=== PATIENT | female | born 1975 | race Caucasian/White ===

== ENCOUNTER 2018-03-22 08:29 | Emergency (ER) | payer BC ==
[~2018-03-22] VITALS: Ht 170.2 cm; Wt 61.6 kg
[~2018-03-22 08:29] MED LIST: CLX20 PO; DEXTLIQ PO; NAPR1TAB9 PO
[2018-03-22 08:36] VITALS: TEMP 36.7; Ht 170.2 cm; Wt 61.6 kg
[2018-03-22] MEDS ORDERED: ASPIRIN 81 MG CHEW PO STA (09:19)
[2018-03-22 09:41] LABS: BASO % 0.5 %; BASO ABS # 0.02 K/uL (0-0.2); EOS % 1.6 %; EOS ABS # 0.07 K/uL (0-0.5); HEMATOCRIT 39.1 % (37-47); HEMOGLOBIN 13.5 g/dL (12.0-16.0); IG# 0.01 K/uL (0.00-0.02); LYMPH % 29.6 %; LYMPH ABS # 1.29 K/uL (1.2-3.4); MEAN CELL VOLUME 95.6 fL (80-100); MEAN CORPUSCULAR HGB CONC 34.5 g/dl (32-36); MEAN PLATELET VOLUME 10.8 fL (7.4-10.4); MONO % 6.9 %; NEUT % 61.2 %; NEUT ABS # 2.67 K/uL (1.4-6.5); PLATELET COUNT 238 K/uL (130-400); RED CELL DISTRIBUTION WIDTH CV 12.8 % (11.5-14.5); RED CELL DISTRIBUTION WIDTH SD 43.8 fL (36.4-46.3); WHITE BLOOD COUNT 4.36 K/uL (4.8-10.8)
[2018-03-22] MEDS ORDERED: CITA-295 PO (09:43)
[2018-03-22 09:49] LABS: ALBUMIN 3.8 gm/dl (3.4-5.0); ALT/SGPT 21 U/L (12-78); AST/SGOT 19 U/L (15-37); BLOOD UREA NITROGEN 14 mg/dl (7-18); CALCIUM 8.1 mg/dl (8.5-10.1); CARBON DIOXIDE 27 mmol/L (21-32); CREATININE 0.91 mg/dl (0.60-1.20); GLUCOSE 110 mg/dl (70-99); SODIUM 142 mmol/L (136-145)
[2018-03-22 09:54] LABS: ALKALINE PHOSPHATASE 72 U/L (45-117); TOTAL PROTEIN 7.1 gm/dl (6.4-8.2)
--- NOTE | 2018-03-22 09:54 | DIAGNOSTIC IMAGING REPORT ---
CHEST ONE VIEW PORTABLE CLINICAL HISTORY: chest pain dyspnea COMPARISON STUDY: No previous studies for comparison. FINDINGS: The bones soft tissues and hemidiaphragms are normal. The cardiomediastinal silhouette is normal. The lungs are clear. The pulmonary vasculature is normal. IMPRESSION: Negative chest. The above report was generated using voice recognition software. It may contain grammatical, syntax or spelling errors. Electronically signed by: Ángel Lopez M.D. 03/22/2018 9:53 AM Dictated Date/Time: 03/22/2018 9:52 AM
[2018-03-22] MEDS ORDERED: PANTOprazole SOD 40 MG TAB PO STA (10:28)
[2018-03-22] MEDS ORDERED: RANITIDINE HCL 150 MG TAB PO ONE (10:30)
[2018-03-22] MEDS ORDERED: RANI150T3 PO (10:34)
[2018-03-22] MEDS ORDERED: PANT40TA PO (10:34)
--- NOTE | 2018-03-22 10:43 | EMERGENCY ROOM VISIT NOTE ---
History Report prepared by Lilly: Nena Logan Under the Supervision of: Dr. Rochelle Spencer M.D. First contact with patient: 09:19 Chief Complaint: CHEST PAIN Stated Complaint: CHEST PAINS Nursing Triage Summary: patient c/o midsternal chest pressure that does not radiate since this AM. History of Present Illness The patient is a 42 year old female who presents to the Emergency Room with complaints of an episode of chest pain starting last night. The patient states that she has had this in the past. She states that two weeks ago she stayed home from work for 2 days because she had the chest pain. She states that it woke her up again last night and she had it again this morning. She reports that each time she has one of these episodes she feels nauseous. She states that it feels like a nauseous from pain, but not from being sick. She notes that she feels short of breath and like someone is "sitting on her chest" when these episodes occur. She reports that the Aspirin given here in the ED helped her. The patient complains of fatigue and being stressed. 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 She notes that it will be done in May. The patient denies chest pain on exertion, vomiting, recent trips, being on control, and any chance of . The patient notes that she had beer, cake, and guacamole before bed last night. Source of History: patient Onset: last night Position: chest Quality: other ("someone sitting on her chest") Timing: other (episode) Associated Symptoms: + SOB, + nausea, + fatigue, No vomiting Note: The patient complains of being stressed. The patient denies chest pain on exertion. Review of Systems See HPI for pertinent positives & negatives. A total of 10 systems reviewed and were otherwise negative. Past Medical & Surgical Surgical Problems: (1) H/O section Family History FHx: hypertension Social History Smoking Status: Never Smoker Alcohol Use: none Drug Use: none Marital Status: Housing Status: lives with family Occupation Status: employed Current/Historical Medications Scheduled Citalopram Hydrobromide (Citalopram), 20 MG PO DAILY Pantoprazole (Protonix), 40 MG PO DAILY Ranitidine Hcl (Zantac), 150 MG PO BID Allergies Coded Allergies: Penicillins (Verified Allergy, Intermediate, HIVES, 4/22/18) Physical Exam Vital Signs Date Time Temp Pulse Resp B/P (MAP) Pulse Ox O2 Delivery O2 Flow Rate FiO2 03/22/18 10:52 62 13 112/74 99 03/22/18 10:23 58 12 108/72 98 Room Air 03/22/18 09:44 74 13 100 03/22/18 09:29 71 11 99 03/22/18 09:20 68 03/22/18 08:36 36.7 81 18 118/83 98 Room Air Physical Exam Vital signs reviewed. General: Well-appearing, in no significant distress. HEENT: No scleral icterus, PERRLA, neck supple. Atraumatic. Cardiovascular: Regular rate and rhythm, no extra sounds. Pulmonary: Clear to auscultation bilaterally, normal work of breathing. Abdomen: Soft, nontender, nondistended, positive bowel sounds. Musculoskeletal: Atraumatic, no peripheral edema. Neurologic: Patient awake alert and oriented x 3 Skin: Warm, dry, no rash Medical Decision & Procedures ER Provider Diagnostic Interpretation: Radiology results as stated below per my review and radiologist interpretation: CHEST ONE VIEW PORTABLE CLINICAL HISTORY: chest pain dyspnea COMPARISON STUDY: No previous studies for comparison. FINDINGS: The bones soft tissues and hemidiaphragms are normal. The cardiomediastinal silhouette is normal. The lungs are clear. The pulmonary vasculature is normal. IMPRESSION: Negative chest. The above report was generated using voice recognition software. It may contain grammatical, syntax or spelling errors. Electronically signed by: Ángel Lopez M.D. 03/22/2018 9:53 AM Dictated Date/Time: 03/22/2018 9:52 AM Laboratory Results 03/22/18 09:10 Red Blood Count 4.09, Mean Corpuscular Volume 95.6, Mean Corpuscular Hemoglobin 33.0, Mean Corpuscular Hemoglobin Concent 34.5, Mean Platelet Volume 10.8, Neutrophils (%) (Auto) 61.2, Lymphocytes (%) (Auto) 29.6, Monocytes (%) (Auto) 6.9, Eosinophils (%) (Auto) 1.6, Basophils (%) (Auto) 0.5, Neutrophils # (Auto) 2.67, Lymphocytes # (Auto) 1.29, Monocytes # (Auto) 0.30, Eosinophils # (Auto) 0.07, Basophils # (Auto) 0.02 03/22/18 09:10 Test 03/22/18 09:10 White Blood Count 4.36 K/uL (4.8-10.8) Red Blood Count 4.09 M/uL (4.2-5.4) Hemoglobin 13.5 g/dL (12.0-16.0) Hematocrit 39.1 % (37-47) Mean Corpuscular Volume 95.6 fL (80-100) Mean Corpuscular Hemoglobin 33.0 pg (25-34) Mean Corpuscular Hemoglobin Concent 34.5 g/dl (32-36) Platelet Count 238 K/uL (130-400) Mean Platelet Volume 10.8 fL (7.4-10.4) Neutrophils (%) (Auto) 61.2 % Lymphocytes (%) (Auto) 29.6 % Monocytes (%) (Auto) 6.9 % Eosinophils (%) (Auto) 1.6 % Basophils (%) (Auto) 0.5 % Neutrophils # (Auto) 2.67 K/uL (1.4-6.5) Lymphocytes # (Auto) 1.29 K/uL (1.2-3.4) Monocytes # (Auto) 0.30 K/uL (0.11-0.59) Eosinophils # (Auto) 0.07 K/uL (0-0.5) Basophils # (Auto) 0.02 K/uL (0-0.2) RDW Standard Deviation 43.8 fL (36.4-46.3) RDW Coefficient of Variation 12.8 % (11.5-14.5) Immature Granulocyte % (Auto) 0.2 % Immature Granulocyte # (Auto) 0.01 K/uL (0.00-0.02) Anion Gap 9.0 mmol/L (3-11) Est Creatinine Clear Calc Drug Dose 79.9 ml/min Estimated GFR () 91.5 Estimated GFR (Non- 78.9 BUN/Creatinine Ratio 15.1 (10-20) Calcium Level 8.1 mg/dl (8.5-10.1) Total Bilirubin 0.3 mg/dl (0.2-1) Direct Bilirubin < 0.1 mg/dl (0-0.2) Aspartate Amino Transf (AST/SGOT) 19 U/L (15-37) Alanine Aminotransferase (ALT/SGPT) 21 U/L (12-78) Alkaline Phosphatase 72 U/L (45-117) Troponin I < 0.015 ng/ml (0-0.045) Total Protein 7.1 gm/dl (6.4-8.2) Albumin 3.8 gm/dl (3.4-5.0) Laboratory results per my review. Medications Administered Medications (Trade) Dose Ordered Sig/Pako Route Start Time Stop Time Status Last Admin Dose Admin Aspirin (Aspirin Chew) 324 mg NOW STAT PO 03/22/18 09:19 03/22/18 09:20 DC 03/22/18 09:25 324 MG Pantoprazole Sodium (Protonix Tab) 40 mg NOW STAT PO 03/22/18 10:28 03/22/18 10:29 DC 03/22/18 10:51 40 MG Ranitidine HCl (zANTac TAB) 150 mg NOW ONCE PO 03/22/18 10:30 03/22/18 10:31 DC 03/22/18 10:51 150 MG ECG Per My Interpretation Indication: chest pain Rate (beats per minute): 68 Rhythm: normal sinus Findings: nonspecific-ST abn (Inferior, Anterior), no ectopy, other (QT-c 457) Comparison ECG Date: no prior available ED Course 0919: Ordered Aspirin 324 mg PO. 1008: Past medical records reviewed. The patient was evaluated in room A10. A complete history and physical examination was performed. I discussed findings with her. She verbalized agreement of the treatment plan. The patient was discharged home. 1028: Ordered Protonix Tab 40 mg PO. 1030: Ordered Ranitidine HCl 150 mg PO. Medical Decision DDx: Acute coronary syndrome, pulmonary embolus, aortic dissection, musculoskeletal pain, pneumonia, pleural effusion, pneumothorax This patient was evaluated and appeared to be in no significant distress. IV access was obtained and laboratory work was drawn. EKG reveals no evidence of acute ischemic change. Patient did receive p.o. aspirin. Chest x-ray was obtained and is negative. Cardiac enzymes are normal. After discussion with the patient, it seems as though she does not have any discomfort with exertion. Her symptoms are primarily at night. I suspect this is esophageal reflux/ spasm. Patient was given Zantac 150 mg p.o. and Protonix 40 mg p.o. She was advised on dietary changes and will attempt to drink more water. She will follow-up with her physician gastroenterology as needed. She will return to the ER for worsening of symptoms or any medical concerns. Medication Reconcilliation Current Medication List: was personally reviewed by me Blood Pressure Screening Patient's blood pressure: Normal blood pressure Blood pressure disposition: Did not require urgent referral Impression Primary Impression: GERD (gastroesophageal reflux disease) Additional Impression: Chest pain with low risk for cardiac etiology Scribe Attestation The scribe's documentation has been prepared under my direction and personally reviewed by me in its entirety. I confirm that the note above accurately reflects all work, treatment, procedures, and medical decision making performed by me. Departure Information Dispostion Home / Self-Care Prescriptions Ranitidine Hcl (ZANTAC) 150 Mg Tab 150 MG PO BID for 30 Days, #60 TAB Prov: Rochelle Spencer M.D. 03/22/18 Pantoprazole (Protonix) 40 Mg Tab 40 MG PO DAILY, #30 TAB Prov: Rochelle Spencer M.D. 03/22/18 Referrals No Doctor, Assigned (PCP) Forms Call Back Authorization, HOME CARE DOCUMENTATION FORM, IMPORTANT VISIT INFORMATION Patient Instructions My [facility] Additional Instructions Diagnosis: Chest pain, GERD Protonix 40 mg daily for the next 30 days. Zantac 150 mg 1-2 times daily, particularly before bed, as needed for GERD. Please minimize the alcohol and coffee/soda in your diet. Avoid greasy and spicy foods. Avoid NSAIDs such as aspirin, Aleve and ibuprofen. Follow-up with your primary care physician for reevaluation within the next 2 weeks. Return to the emergency department immediately for worsening of symptoms or any medical concerns. Problem Qualifiers
[2018-03-22 10:52] VITALS: BP 112/74; PULSE 62; O2SAT 99
== END 2018-03-22 10:55 | disposition home or self-care (01) ==
LOC: C.EDB 08:30 → C.EDA 10:55
DX: K21.9 Gastro-esophageal reflux disease without esophagitis (principal); R07.89 Other chest pain; R11.0 Nausea; R53.83 Other fatigue; Z79.899 Other long term (current) drug therapy; Z88.0 Allergy status to penicillin